=== PATIENT | male | born 2000 | race African-American/Black ===

== ENCOUNTER 2019-05-19 04:39 | Emergency (ER) | payer MEDICAID, OTHER ==
[~2019-05-19] VITALS: Ht 175.3 cm; Wt 125.5 kg
[2019-05-19 05:12] VITALS: BP 128/88
== END 2019-05-19 05:29 | disposition home or self-care (01) ==
LOC: EMS 04:44
DX: H66.91 Otitis media, unspecified, right ear (principal); N39.0 Urinary tract infection, site not specified; F84.0 Autistic disorder